=== PATIENT | female | born 1985 | race Caucasian/White ===

== ENCOUNTER → 2018-03-19 | Day surgery (SDC) | payer BC ==
[2018-03-15 15:29] LABS: BASOPHILS % 0.5 % (0.0-1.0); EOSINOPHILS # (AUTO) 0.3 (0.0-0.4); EOSINOPHILS % 3.4 % (0.0-6.0); HEMATOCRIT 37.1 % (34.2-44.1); HEMOGLOBIN 12.2 g/dL (12.0-16.0); LYMPHOCYTES # (AUTO) 2.4 (1.0-3.2); MEAN CORPUSCULAR HEMOGLOBIN 27.4 pg (28-32); MEAN CORPUSCULAR HGB CONC 32.9 g/dL (31-35); MEAN CORPUSCULAR VOLUME 83.4 fL (81-99); MONOCYTES # (AUTO) 0.8 (0.2-0.8); NEUTROPHILS % 58.9 % (38.7-80.0); PLATELET COUNT 280 x10e3/uL (140-360); RED BLOOD COUNT 4.45 x10e6/uL (3.6-5.1); RED CELL DISTRIBUTION WIDTH 13.1 % (11.7-14.4)
[~2018-03-19] MED LIST: BUPIVACAINE 0.25%/EPI 30ML SDV INJ ONE; DEXAMETHASONE SOD PHOS INJ 4 MG/ML VIAL ONE; FENTANYL CITRATE/PF 100MCG/2 ML INJ ONE; GELATIN SPONGE SZ 100 ONE; HYDROCODONE/APAP 7.5MG-325MG 1 EA TAB ONE; KETOROLAC TROMETHAMINE 30 MG/ML VIAL ONE; LIDOCAINE HCL 1% 30ML-PF VIAL ONE; LIDOCAINE HCL 2% 30 ML TUBE ONE; LIDOCAINE HCL 2% LOCAL INJ 5 ML SDV VIAL INJ ONE; MIDAZOLAM HCL 2 MG/2 ML VIAL ONE; ONDANSETRON HCL INJ 2 MG/ML VIAL ONE; PRENATAL TABLE1 EAC1 PO; PROPOFOL IV EMULSION 10 MG/ML 20 ML VIAL ONE; SEVOFLURANE INHAL SOLN 250 ML PEN BTL ONE
--- NOTE | 2018-03-19 10:38 | Operative Report ---
DATE OF PROCEDURE: March 19, 2018 PREOPERATIVE DIAGNOSIS: Anorectal fistula. POSTOPERATIVE DIAGNOSIS: Complex extrasphincteric anorectal fistula. OPERATION PERFORMED: Complex anorectal fistulectomy with placement of Seton. RADIATION SAFETY OFFICER: ADAM Eduardo. ANESTHESIA: General. COMPLICATIONS: None. ESTIMATED BLOOD LOSS: Minimal. DESCRIPTION OF PROCEDURE: With the patient lying in bed in the lithotomy position under good general anesthesia, the perineum was prepped with Betadine solution and draped in the usual manner. At about the 2 o'clock position, there was an external opening of the fistula, which upon placing the probe we went deeply into the perirectal area and outside of the sphincter. The internal opening could be palpated at the 12 o'clock position. We then partially opened the fistulous tract, and confirmed that it was indeed an extrasphincteric fistula encompassing the entire sphincter. We then managed to pass a probe all the way above the sphincter and down the fistula tract through the internal opening at the 12 o'clock position. All of the mucosa over the fistula tract was then opened, debrided and cleaned up. Similarly, we externally removed all of the tissue other than cutting the sphincter itself. A Seton using a 0.25-inch [employer] drain was then placed. It was sutured to itself with an 0 silk suture. The fistula tract was entirely debrided, and the whole area was then infiltrated with 0.25% Marcaine with epinephrine solution. A dressing was applied. The sponge, lap and needle count was correct. Patient tolerated the procedure well and returned to the recovery room in stable condition. Job#: [id number]
== END | disposition home or self-care (01) ==
LOC: OR 05:33
PROVIDERS: ATTEND Surgery
DX: K60.5 Anorectal fistula (principal); Z01.812 Encounter for preprocedural laboratory examination
CPT/HCPCS: 36415; 46020; 46270; 81025; 85025; J1100; J1885; J2001; J2250; J2405